=== PATIENT | female | born 1955 | race Caucasian/White ===

== ENCOUNTER 2019-02-25 09:15 | Emergency (ER) | payer MEDICAID ==
[~2019-02-25] VITALS: Ht 160 cm; Wt 79.1 kg
[~2019-02-25 09:15] MED LIST: AMOX-580 PO; PER10325T PO
[2019-02-25 09:49] LABS: BASOPHILS # (AUTO) 0.1 X10'3 (0-0.2); BASOPHILS % (AUTO) 0.6 % (0-1); EOSINOPHILS # (AUTO) 0.4 X10'3 (0-0.9); EOSINOPHILS % (AUTO) 2.9 % (0-6); HEMATOCRIT 46.5 % (35.0-45.0); LYMPHOCYTES # (AUTO) 4.9 X10'3 (1.1-4.8); LYMPHOCYTES % (AUTO) 35.3 % (21-51); MEAN CORPUSCULAR HEMOGLOBIN 31.2 PG (27.0-31.0); MEAN CORPUSCULAR HGB CONC 34.4 g/dL (33.0-36.5); MEAN CORPUSCULAR VOLUME 90.7 FL (78-98); MONOCYTES # (AUTO) 1.1 X10'3 (0-0.9); MONOCYTES % (AUTO) 7.9 % (2-12); NEUTROPHILS # (AUTO) 7.4 X10'3 (1.8-7.7); NEUTROPHILS % (AUTO) 53.3 % (42-75); PLATELET COUNT 318 X10'3 (140-440); RED BLOOD COUNT 5.13 X10'6 (4.20-5.60); RED CELL DISTRIBUTION WIDTH 13.2 % (11.5-14.5)
[2019-02-25 10:04] LABS: PARTIAL THROMBOPLASTIN TIME 27 SECONDS (22-32)
[2019-02-25 10:05] LABS: ALANINE AMINOTRANSFERASE 160 U/L (12-78); ALBUMIN 3.7 G/DL (3.4-5.0); ALBUMIN/GLOBULIN RATIO 0.8 (1.1-1.5); ALKALINE PHOSPHATASE 109 IU/L (46-116); ANION GAP 8 (8-16); ASPARTATE AMINO TRANSFERASE 80 U/L (10-37); BILIRUBIN,TOTAL 0.3 MG/DL (0.1-1.0); BLOOD UREA NITROGEN 21 MG/DL (7-18); CALCIUM 9.4 MG/DL (8.5-10.1); CHLORIDE 105 MMOL/L (99-107); CREATININE 1.05 MG/DL (0.40-0.90); GLUCOSE 100 MG/DL (70-104); POTASSIUM 4.2 MMOL/L (3.5-5.1); SODIUM 141 MMOL/L (135-145); TOTAL CARBON DIOXIDE 28.4 MMOL/L (24-32); TOTAL PROTEIN 8.4 G/DL (6.4-8.2); eGFR 53 ML/MIN
[2019-02-25 10:10] VITALS: BP 159/111
[2019-02-25] MEDS ORDERED: acetaminophen w/codeine (30MG) #3 tablet PO ONE (10:20)
[2019-02-25] MEDS ORDERED: azithromycin 250mg tablet PO ONE (10:20)
[2019-02-25] MEDS ORDERED: AZIT-72 PO (10:25)
== END 2019-02-25 10:45 | disposition home or self-care (01) ==
LOC: ER 09:16
DX: J40 Bronchitis, not specified as acute or chronic (principal); Z90.49 Acquired absence of other specified parts of digestive tract; Z90.710 Acquired absence of both cervix and uterus; Z98.890 Other specified postprocedural states; Z88.8 Allergy status to other drugs, medicaments and biological substances; Z79.899 Other long term (current) drug therapy; Z56.0 Unemployment, unspecified
CPT/HCPCS: 36415; 71046; 80053; 84145; 84484; 85025; 85610; 85730; 93005; 99284

== ENCOUNTER 2022-03-19 10:42 | Emergency (ER) | payer MEDICAID ==
[~2022-03-19] VITALS: Ht 91.4 cm; Wt 75.0 kg
[2022-03-19 11:23] VITALS: BP 160/97
== END 2022-03-19 14:36 | disposition left against medical advice (07) ==
LOC: ER 10:43
DX: S61.412A Laceration without foreign body of left hand, initial encounter (principal); Z53.21 Procedure and treatment not carried out due to patient leaving prior to being seen by health care provider; X58.XXXA Exposure to other specified factors, initial encounter; Y93.89 Activity, other specified; Y92.89 Other specified places as the place of occurrence of the external cause; Y99.8 Other external cause status
CPT/HCPCS: A6446; A6449

== ENCOUNTER 2022-08-01 18:32 | Emergency (ER) | payer MEDICAID ==
[~2022-08-01] VITALS: Ht 160 cm; Wt 72.7 kg
[2022-08-01 20:58] VITALS: BP 144/95
[2022-08-01] MEDS ORDERED: TRAM50TA2 PO (22:55)
[2022-08-01] MEDS ORDERED: traMADol 50MG tablet PO ONE (23:10)
== END 2022-08-01 23:19 | disposition home or self-care (01) ==
LOC: ER 18:33
DX: M71.21 Synovial cyst of popliteal space [Baker], right knee (principal); Z90.49 Acquired absence of other specified parts of digestive tract; Z90.710 Acquired absence of both cervix and uterus; Z98.890 Other specified postprocedural states; Z56.0 Unemployment, unspecified; Z88.8 Allergy status to other drugs, medicaments and biological substances; Z79.899 Other long term (current) drug therapy
CPT/HCPCS: 73564; 93971; 99284

== ENCOUNTER 2022-08-17 00:22 | Emergency (ER) | payer MEDICAID ==
[~2022-08-17] VITALS: Ht 160 cm; Wt 67.2 kg
[2022-08-17 00:25] VITALS: BP 149/101
[2022-08-17] MEDS ORDERED: IBUP-1985 PO (00:39)
[2022-08-17] MEDS ORDERED: TRAM50TA2 PO (00:39)
[2022-08-17] MEDS ORDERED: ACET650T58 PO (00:39)
== END 2022-08-17 00:53 | disposition home or self-care (01) ==
LOC: ER 00:23
DX: M71.21 Synovial cyst of popliteal space [Baker], right knee (principal); Z88.8 Allergy status to other drugs, medicaments and biological substances; Z79.899 Other long term (current) drug therapy; Z79.1 Long term (current) use of non-steroidal anti-inflammatories (NSAID); Z79.2 Long term (current) use of antibiotics
CPT/HCPCS: 99283

== ENCOUNTER 2022-10-12 14:46 | Inpatient (IN) | payer MEDICAID ==
[~2022-10-12] VITALS: Ht 160 cm; Wt 63.6 kg
[~2022-10-12 14:46] MED LIST changes: +IBUP-1985 PO
[2022-10-12] MEDS ORDERED: piperacillin/tazo 3.375gm/50ml 50 ML IV ONE (15:25)
[2022-10-12 16:00] LABS: BASOPHILS % (AUTO) 0.2 % (0-1); EOSINOPHILS # (AUTO) 0.1 X10'3 (0-0.9); EOSINOPHILS % (AUTO) 0.8 % (0-6); HEMATOCRIT 41.7 % (35.0-45.0); HEMOGLOBIN 13.9 g/dl (12.0-16.0); LYMPHOCYTES % (AUTO) 32.1 % (21-51); MEAN CORPUSCULAR HEMOGLOBIN 29.3 PG (27.0-31.0); MEAN CORPUSCULAR HGB CONC 33.3 g/dL (33.0-36.5); MEAN CORPUSCULAR VOLUME 87.9 FL (78-98); MONOCYTES # (AUTO) 1.4 X10'3 (0-0.9); MONOCYTES % (AUTO) 10.7 % (2-12); NEUTROPHILS # (AUTO) 7.1 X10'3 (1.8-7.7); NEUTROPHILS % (AUTO) 56.2 % (42-75); PLATELET COUNT 241 X10'3 (140-440); RED BLOOD COUNT 4.74 X10'6 (4.20-5.60); RED CELL DISTRIBUTION WIDTH 13.5 % (11.5-14.5); WHITE BLOOD COUNT 12.6 X10'3 (4.5-11.0)
[2022-10-12] MEDS ORDERED: morphine 4 MG/ML inj SYRINge IV ONE (16:00)
[2022-10-12] MEDS ORDERED: ondansetron/PF 4mg/2ml inj IV ONE (16:00)
[2022-10-12 16:16] LABS: ALANINE AMINOTRANSFERASE 54 U/L (12-78); ALBUMIN 3.4 G/DL (3.4-5.0); ALBUMIN/GLOBULIN RATIO 0.9 (1.1-1.5); ALKALINE PHOSPHATASE 102 IU/L (46-116); ANION GAP 9 (8-16); ASPARTATE AMINO TRANSFERASE 31 U/L (10-37); BILIRUBIN,TOTAL 0.6 MG/DL (0.1-1.0); BLOOD UREA NITROGEN 11 MG/DL (7-18); BUN/CREATININE RATIO 11.8 (10.0-20.0); CALCIUM 8.9 MG/DL (8.5-10.1); CHLORIDE 105 MMOL/L (99-107); CREATININE 0.93 MG/DL (0.40-0.90); GLUCOSE 96 MG/DL (70-104); POTASSIUM 3.6 MMOL/L (3.5-5.1); SODIUM 140 MMOL/L (135-145); TOTAL CARBON DIOXIDE 26.1 MMOL/L (24-32); eGFR 61 ML/MIN
[2022-10-12] MEDS ORDERED: TETanus/Pertussis (Acell)/Diphther VAC/PF (Tdap-Adult) 0.5ml syringe IMVAC ONE (16:30)
--- NOTE | 2022-10-12 16:35 | NUR ---
Pt moved from ER fast track to ER rm. 7.
[2022-10-12] MEDS ORDERED: NO HOME MEDS (17:35)
--- NOTE | 2022-10-12 18:19 | NUR ---
assumed care from shagufta sampson.
[2022-10-12] MEDS ORDERED: mag hydrox/Alum hydrox/simeth 30ml oral suspension PO PRN (20:35)
[2022-10-12] MEDS ORDERED: ondansetron/PF 4mg/2ml inj IV PRN (20:35)
[2022-10-12] MEDS ORDERED: magnesium 4gm in 100ml NS 100 ML IV PRN (20:35)
[2022-10-12] MEDS ORDERED: HYDROcodone/acetaminophen 5mg/325mg tablet PO PRN (20:35)
[2022-10-12] MEDS ORDERED: acetaminophen 325mg tablet PO PRN (20:35)
[2022-10-12] MEDS ORDERED: magnesium hydroxide 30ml (MOM) UD suspension PO PRN (20:35)
[2022-10-12] MEDS ORDERED: potassium Cl 20 mEq SR tablet PO PRN ×2 (20:35)
[2022-10-12] MEDS ORDERED: magnesium 2GM in 50ml NS 50 ML IV PRN (20:35)
[2022-10-12] MEDS ORDERED: morphine 2 MG/ML inj. syringe IV PRN ×2 (20:35)
[2022-10-12] MEDS ORDERED: potassium Cl 40MEQ/1/2NS 520ml 520 ML IV PRN (20:35)
[2022-10-12] MEDS ORDERED: magnesium Cl slow-release 64mg tablet PO PRN (20:35)
--- NOTE | 2022-10-12 22:10 | NUR ---
Received report from OLLIE Lozano in the ED.
[2022-10-12 22:25] VITALS: BP 152/90
--- NOTE | 2022-10-12 22:25 | NUR ---
Pt came up to the floor.
[2022-10-12] MEDS: HYDROcodone/acetaminophen 10/325mg tab PO PRN (22:54)
[2022-10-13] MEDS: piperacillin/tazo 3.375gm/50ml 50 ML IV SCH ×3 (00:21→16:26)
[2022-10-13 05:00] VITALS: BP 98/71
[2022-10-13 06:19] LABS: BASOPHILS # (AUTO) 0.1 X10'3 (0-0.2); BASOPHILS % (AUTO) 0.9 % (0-1); EOSINOPHILS # (AUTO) 0.2 X10'3 (0-0.9); EOSINOPHILS % (AUTO) 1.6 % (0-6); HEMATOCRIT 39.9 % (35.0-45.0); HEMOGLOBIN 13.4 g/dl (12.0-16.0); LYMPHOCYTES # (AUTO) 3.7 X10'3 (1.1-4.8); LYMPHOCYTES % (AUTO) 37.6 % (21-51); MEAN CORPUSCULAR HEMOGLOBIN 29.7 PG (27.0-31.0); MEAN CORPUSCULAR HGB CONC 33.7 g/dL (33.0-36.5); MEAN CORPUSCULAR VOLUME 88.2 FL (78-98); MEAN PLATELET VOLUME 8.7 FL (7.4-10.4); NEUTROPHILS # (AUTO) 4.8 X10'3 (1.8-7.7); NEUTROPHILS % (AUTO) 49.9 % (42-75); PLATELET COUNT 219 X10'3 (140-440); RED BLOOD COUNT 4.52 X10'6 (4.20-5.60); RED CELL DISTRIBUTION WIDTH 13.8 % (11.5-14.5); WHITE BLOOD COUNT 9.7 X10'3 (4.5-11.0)
[2022-10-13 06:22] LABS: ALANINE AMINOTRANSFERASE 50 U/L (12-78); ALBUMIN 2.9 G/DL (3.4-5.0); ALBUMIN/GLOBULIN RATIO 0.9 (1.1-1.5); ALKALINE PHOSPHATASE 75 IU/L (46-116); ANION GAP 9 (8-16); ASPARTATE AMINO TRANSFERASE 29 U/L (10-37); BILIRUBIN,TOTAL 0.9 MG/DL (0.1-1.0); BLOOD UREA NITROGEN 11 MG/DL (7-18); BUN/CREATININE RATIO 12.8 (10.0-20.0); CALCIUM 8.7 MG/DL (8.5-10.1); CHLORIDE 106 MMOL/L (99-107); CREATININE 0.86 MG/DL (0.40-0.90); GLUCOSE 102 MG/DL (70-104); MAGNESIUM 1.7 MG/DL (1.5-2.4); POTASSIUM 3.7 MMOL/L (3.5-5.1); SODIUM 142 MMOL/L (135-145); TOTAL CARBON DIOXIDE 26.9 MMOL/L (24-32); TOTAL PROTEIN 6.2 G/DL (6.4-8.2); eGFR 66 ML/MIN
--- NOTE | 2022-10-13 06:36 | NUR ---
Problems reprioritized. Patient report given, questions answered & plan of care reviewed with CHANELL Maya.
--- NOTE | 2022-10-13 06:48 | NUR ---
Patient in room ORTHO 4023. I have received report from Dasia and had the opportunity to ask questions and assume patient care.
[2022-10-13] MEDS: K and/or MAG REPLACEMENT MC SCH ×2 (06:56→19:40)
[2022-10-13] MEDS: docusate sod 100mg capsule PO SCH ×2 (08:06→19:34)
[2022-10-13] MEDS: heparin, porcine 5000 units/ml vial SQ SCH ×2 (08:07→19:34)
[2022-10-13] MEDS: HYDROcodone/acetaminophen 10/325mg tab PO PRN ×2 (08:11→19:34)
[2022-10-13 10:00] VITALS: BP 100/66
[2022-10-13 18:00] VITALS: BP 120/63
--- NOTE | 2022-10-13 18:41 | NUR ---
Patient in room ORTHO 4023. I have received report from VIVIENNE LUA and had the opportunity to ask questions and assume patient care.
[2022-10-13 22:00] VITALS: BP 138/69
[2022-10-14] MEDS: piperacillin/tazo 3.375gm/50ml 50 ML IV SCH ×4 (00:18→23:56)
[2022-10-14] MEDS: HYDROcodone/acetaminophen 10/325mg tab PO PRN ×3 (03:11→19:10)
[2022-10-14 04:23] LABS: BASOPHILS % (AUTO) 0.5 % (0-1); EOSINOPHILS # (AUTO) 0.2 X10'3 (0-0.9); EOSINOPHILS % (AUTO) 2.4 % (0-6); HEMATOCRIT 41.1 % (35.0-45.0); HEMOGLOBIN 13.8 g/dl (12.0-16.0); LYMPHOCYTES # (AUTO) 3.5 X10'3 (1.1-4.8); LYMPHOCYTES % (AUTO) 39.4 % (21-51); MEAN CORPUSCULAR HEMOGLOBIN 29.7 PG (27.0-31.0); MEAN CORPUSCULAR HGB CONC 33.6 g/dL (33.0-36.5); MEAN CORPUSCULAR VOLUME 88.5 FL (78-98); MEAN PLATELET VOLUME 8.9 FL (7.4-10.4); MONOCYTES % (AUTO) 11.2 % (2-12); NEUTROPHILS # (AUTO) 4.1 X10'3 (1.8-7.7); NEUTROPHILS % (AUTO) 46.5 % (42-75); PLATELET COUNT 226 X10'3 (140-440); RED BLOOD COUNT 4.64 X10'6 (4.20-5.60); RED CELL DISTRIBUTION WIDTH 13.4 % (11.5-14.5); WHITE BLOOD COUNT 8.8 X10'3 (4.5-11.0)
[2022-10-14 04:50] LABS: ALANINE AMINOTRANSFERASE 50 U/L (12-78); ALBUMIN 2.6 G/DL (3.4-5.0); ALBUMIN/GLOBULIN RATIO 0.7 (1.1-1.5); ALKALINE PHOSPHATASE 84 IU/L (46-116); ANION GAP 11 (8-16); ASPARTATE AMINO TRANSFERASE 28 U/L (10-37); BILIRUBIN,TOTAL 0.4 MG/DL (0.1-1.0); BLOOD UREA NITROGEN 18 MG/DL (7-18); BUN/CREATININE RATIO 19.1 (10.0-20.0); CALCIUM 8.7 MG/DL (8.5-10.1); CHLORIDE 105 MMOL/L (99-107); CREATININE 0.94 MG/DL (0.40-0.90); GLUCOSE 104 MG/DL (70-104); MAGNESIUM 1.6 MG/DL (1.5-2.4); SODIUM 142 MMOL/L (135-145); TOTAL CARBON DIOXIDE 26.5 MMOL/L (24-32); TOTAL PROTEIN 6.1 G/DL (6.4-8.2); eGFR 60 ML/MIN
[2022-10-14 06:00] VITALS: BP 140/62
--- NOTE | 2022-10-14 06:32 | NUR ---
Problems reprioritized. Patient report given, questions answered & plan of care reviewed with ANU LEVIN.
--- NOTE | 2022-10-14 06:36 | NUR ---
Patient in room ORTHO 4023. I have received report from Gabriela LUA and had the opportunity to ask questions and assume patient care.
[2022-10-14] MEDS: K and/or MAG REPLACEMENT MC SCH ×2 (08:00→19:22)
[2022-10-14] MEDS: docusate sod 100mg capsule PO SCH ×2 (08:17→19:10)
[2022-10-14] MEDS: heparin, porcine 5000 units/ml vial SQ SCH ×2 (08:17→19:10)
[2022-10-14 10:00] VITALS: BP 104/73
[2022-10-14 18:00] VITALS: BP 132/78
--- NOTE | 2022-10-14 18:08 | NUR ---
Problems reprioritized. Patient report given, questions answered & plan of care reviewed with Chio LUA.
[2022-10-14 22:00] VITALS: BP 115/76
[2022-10-15] MEDS: HYDROcodone/acetaminophen 10/325mg tab PO PRN ×2 (02:07→07:23)
[2022-10-15 04:31] LABS: BASOPHILS # (AUTO) 0.1 X10'3 (0-0.2); EOSINOPHILS # (AUTO) 0.3 X10'3 (0-0.9); EOSINOPHILS % (AUTO) 3.2 % (0-6); HEMATOCRIT 41.2 % (35.0-45.0); HEMOGLOBIN 14.1 g/dl (12.0-16.0); LYMPHOCYTES # (AUTO) 3.7 X10'3 (1.1-4.8); LYMPHOCYTES % (AUTO) 43.3 % (21-51); MEAN CORPUSCULAR HEMOGLOBIN 29.9 PG (27.0-31.0); MEAN CORPUSCULAR HGB CONC 34.1 g/dL (33.0-36.5); MEAN CORPUSCULAR VOLUME 87.8 FL (78-98); MEAN PLATELET VOLUME 8.5 FL (7.4-10.4); MONOCYTES # (AUTO) 0.8 X10'3 (0-0.9); MONOCYTES % (AUTO) 9.3 % (2-12); NEUTROPHILS # (AUTO) 3.7 X10'3 (1.8-7.7); NEUTROPHILS % (AUTO) 43.2 % (42-75); PLATELET COUNT 240 X10'3 (140-440); RED CELL DISTRIBUTION WIDTH 13.4 % (11.5-14.5); WHITE BLOOD COUNT 8.6 X10'3 (4.5-11.0)
[2022-10-15 04:48] LABS: ALANINE AMINOTRANSFERASE 58 U/L (12-78); ALBUMIN 2.8 G/DL (3.4-5.0); ALBUMIN/GLOBULIN RATIO 0.8 (1.1-1.5); ALKALINE PHOSPHATASE 94 IU/L (46-116); ANION GAP 9 (8-16); ASPARTATE AMINO TRANSFERASE 37 U/L (10-37); BILIRUBIN,TOTAL 0.3 MG/DL (0.1-1.0); BLOOD UREA NITROGEN 14 MG/DL (7-18); BUN/CREATININE RATIO 15.6 (10.0-20.0); CALCIUM 8.9 MG/DL (8.5-10.1); CHLORIDE 104 MMOL/L (99-107); GLUCOSE 107 MG/DL (70-104); MAGNESIUM 1.7 MG/DL (1.5-2.4); POTASSIUM 4.1 MMOL/L (3.5-5.1); SODIUM 140 MMOL/L (135-145); TOTAL CARBON DIOXIDE 27.4 MMOL/L (24-32); TOTAL PROTEIN 6.4 G/DL (6.4-8.2); eGFR 63 ML/MIN
[2022-10-15 06:00] VITALS: BP 133/84
[2022-10-15] MEDS: piperacillin/tazo 3.375gm/50ml 50 ML IV SCH (07:24)
[2022-10-15] MEDS: K and/or MAG REPLACEMENT MC SCH (08:00)
[2022-10-15] MEDS: heparin, porcine 5000 units/ml vial SQ SCH (08:09)
[2022-10-15] MEDS: docusate sod 100mg capsule PO SCH (08:09)
[2022-10-15 10:00] VITALS: BP 125/81
[2022-10-15] MEDS ORDERED: AMOX-117 PO (13:31)
== END 2022-10-15 15:25 | disposition home or self-care (01) | DRG 383 ==
LOC: ER 14:47 → ED HOLD 20:35 → ORTHO 4S 22:25
PROVIDERS: ADMIT Internal Medicine; ATTEND Internal Medicine
DX: L03.113 Cellulitis of right upper limb (principal); S51.851A Open bite of right forearm, initial encounter; Z79.4 Long term (current) use of insulin; Z90.710 Acquired absence of both cervix and uterus; Z95.1 Presence of aortocoronary bypass graft; W54.0XXA Bitten by dog, initial encounter; Y93.89 Activity, other specified; Y92.89 Other specified places as the place of occurrence of the external cause; Y99.8 Other external cause status; Z56.0 Unemployment, unspecified; Z88.8 Allergy status to other drugs, medicaments and biological substances; Z79.899 Other long term (current) drug therapy
CPT/HCPCS: 36415; 73090; 80053; 83605; 83735; 84145; 85025; 87040; 87081; 90715; 99285; A6258; G0378; J1644; J2270; J2405; J2543; J7030

== ENCOUNTER 2023-08-14 12:49 | Inpatient (IN) | payer MEDICAID ==
[~2023-08-14] VITALS: Ht 160 cm; Wt 65.0 kg
[2023-08-14] MEDS: normal saline 1000ml 1,000 ML IV ONE ×2 (13:19→14:55)
[2023-08-14 13:26] LABS: BASOPHILS # (AUTO) 0.1 X10'3 (0-0.2); BASOPHILS % (AUTO) 1.3 % (0-1); EOSINOPHILS # (AUTO) 0.3 X10'3 (0-0.9); EOSINOPHILS % (AUTO) 2.7 % (0-6); HEMATOCRIT 43.8 % (35.0-45.0); HEMOGLOBIN 14.9 g/dl (12.0-16.0); LYMPHOCYTES # (AUTO) 4.9 X10'3 (1.1-4.8); LYMPHOCYTES % (AUTO) 51.4 % (21-51); MEAN CORPUSCULAR HGB CONC 33.9 g/dL (33.0-36.5); MEAN CORPUSCULAR VOLUME 91.4 FL (78-98); MEAN PLATELET VOLUME 8.6 FL (7.4-10.4); MONOCYTES # (AUTO) 0.9 X10'3 (0-0.9); MONOCYTES % (AUTO) 9.8 % (2-12); NEUTROPHILS # (AUTO) 3.3 X10'3 (1.8-7.7); NEUTROPHILS % (AUTO) 34.8 % (42-75); PLATELET COUNT 235 X10'3 (140-440); RED CELL DISTRIBUTION WIDTH 13.5 % (11.5-14.5); WHITE BLOOD COUNT 9.5 X10'3 (4.5-11.0)
[2023-08-14] MEDS: ondansetron/PF 4mg/2ml inj IV ONE (13:40)
[2023-08-14 13:42] LABS: ALBUMIN 3.4 G/DL (3.4-5.0); ANION GAP 9 (8-16); BLOOD UREA NITROGEN 13 MG/DL (7-18); BUN/CREATININE RATIO 11.9 (10.0-20.0); CALCIUM 9.3 MG/DL (8.5-10.1); CHLORIDE 107 MMOL/L (99-107); CREATININE 1.09 MG/DL (0.40-0.90); ETHANOL < 10 MG/DL (<10); GLUCOSE 135 MG/DL (70-104); MAGNESIUM 1.7 MG/DL (1.5-2.4); POTASSIUM 3.6 MMOL/L (3.5-5.1); SODIUM 142 MMOL/L (135-145); TOTAL CARBON DIOXIDE 25.7 MMOL/L (24-32); eCRCL 43 ML/MIN; eGFR 50 ML/MIN
[2023-08-14] MEDS: dicyclomine 10 MG capsule PO ONE (14:05)
[2023-08-14] MEDS: normal saline 1000ML IV soln IVB ONE (14:05)
[2023-08-14 14:10] LABS: TOTAL CELLS COUNTED 100
[2023-08-14 14:11] LABS: PLATELET ESTIMATE NORMAL
[2023-08-14 14:25] LABS: ALANINE AMINOTRANSFERASE 156 U/L (12-78); ALBUMIN/GLOBULIN RATIO 0.9 (1.1-1.5); ALKALINE PHOSPHATASE 135 IU/L (46-116); ASPARTATE AMINO TRANSFERASE 81 U/L (10-37); BILIRUBIN,DIRECT 0.1 MG/DL (0-0.3); BILIRUBIN,TOTAL 0.4 MG/DL (0.1-1.0); LIPASE 21 U/L (16-77); TOTAL PROTEIN 7.4 G/DL (6.4-8.2)
[2023-08-14] MEDS ORDERED: pantoprazole 40mg IV 80 MG in normal saline 100ml IV soln 100 ML IV ONE (14:55)
[2023-08-14] MEDS: pantoprazole 40 MG vial IV ONE (15:00)
[2023-08-14 15:24] LABS: BILIRUBIN,URINE NEGATIVE (Neg); CLARITY,URINE CLEAR (Clear); COLOR,URINE YELLOW (Yellow); GLUCOSE, URINE NEGATIVE (Neg); KETONES,URINE NEGATIVE (Neg); LEUKOCYTE ESTERASE ,URINE NEGATIVE (Neg); NITRITES, URINE NEGATIVE (Neg); OCCULT BLOOD,URINE NEGATIVE (Neg); PROTEIN,URINE NEGATIVE (Neg); UROBILINOGEN,URINE 0.2 E.U/dL (0.2-1.0)
[2023-08-14 15:30] LABS: URINE AMPHETAMINE SCREEN POSITIVE (Neg); URINE BARBITUATE SCREEN NEGATIVE (Neg); URINE BENZODIAZEPINES SCREEN NEGATIVE (Neg); URINE CANNABINOID SCREEN NEGATIVE (Neg); URINE COCAINE SCREEN NEGATIVE (Neg); URINE METHADONE SCREEN NEGATIVE (Neg); URINE OPIATE SCREEN NEGATIVE (Neg); URINE PHENCYCLIDINE SCREEN NEGATIVE (Neg)
[2023-08-14 15:32] LABS: RED BLOOD COUNT 4.86 X10'6 (4.20-5.60); RETICULOCYTE % (AUTO) 0.8 % (0.5-1.5)
[2023-08-14] MEDS ORDERED: iohexol 300mg/ml 100ml inj. ONE (15:33)
[2023-08-14 15:39] LABS: UA COLLECTION TYPE NON-SPECIFIED
[2023-08-14] MEDS ORDERED: mag hydrox/Alum hydrox/simeth 30ml oral suspension PO PRN (16:20)
[2023-08-14] MEDS ORDERED: magnesium 4gm in 100ml NS 100 ML IV PRN (16:20)
[2023-08-14] MEDS ORDERED: HYDROcodone/acetaminophen 5mg/325mg tablet PO PRN (16:20)
[2023-08-14] MEDS ORDERED: magnesium 2GM in 50ml NS 50 ML IV PRN (16:20)
[2023-08-14] MEDS ORDERED: haloperidol lactate 5mg/ml inj IM PRN (16:20)
[2023-08-14] MEDS ORDERED: potassium Cl 20 mEq SR tablet PO PRN ×2 (16:20)
[2023-08-14] MEDS ORDERED: potassium Cl 40MEQ/1/2NS 520ml 520 ML IV PRN (16:20)
[2023-08-14] MEDS ORDERED: dextrose 50%-water 50ml dispensing syringe IV PRN (16:20)
[2023-08-14] MEDS ORDERED: LORazepam 2 mg/ml vial IV PRN ×2 (16:20)
[2023-08-14] MEDS ORDERED: magnesium hydroxide 30ml (MOM) UD suspension PO PRN (16:20)
[2023-08-14] MEDS ORDERED: magnesium Cl slow-release 64mg tablet PO PRN (16:20)
[2023-08-14] MEDS ORDERED: ACET-2 PO (16:48)
[2023-08-14] MEDS ORDERED: NO HOME MEDS (16:54)
[2023-08-14] MEDS: dextrose 5%-1/2 normal saline 1,000 ML IV SCH (17:39)
[2023-08-14] MEDS: K and/or MAG REPLACEMENT MC SCH (20:00)
[2023-08-14] MEDS: pantoprazole 40 MG vial IV SCH (20:00)
[2023-08-14] MEDS: docusate sod 100mg capsule PO SCH (20:00)
[2023-08-14] MEDS: thiamine 100mg/ml 2ml inj. IV SCH (21:00)
[2023-08-14 22:45] VITALS: BP 135/80; PULSE 79; RESP 18; TEMP 97.4; O2SAT 97
[2023-08-15] VITALS (7 sets, daily range): BP systolic 94–138; BP diastolic 64–86; PULSE 61–78; RESP 12–18; TEMP 97.1–98.2; O2SAT 91–98
[2023-08-15 09:12] LABS: BASOPHILS # (AUTO) 0.1 X10'3 (0-0.2); BASOPHILS % (AUTO) 0.7 % (0-1); EOSINOPHILS # (AUTO) 0.1 X10'3 (0-0.9); EOSINOPHILS % (AUTO) 1.7 % (0-6); HEMATOCRIT 39.3 % (35.0-45.0); HEMOGLOBIN 13.3 g/dl (12.0-16.0); LYMPHOCYTES # (AUTO) 2.8 X10'3 (1.1-4.8); LYMPHOCYTES % (AUTO) 35.5 % (21-51); MEAN CORPUSCULAR HEMOGLOBIN 31.2 PG (27.0-31.0); MEAN CORPUSCULAR HGB CONC 33.8 g/dL (33.0-36.5); MEAN CORPUSCULAR VOLUME 92.4 FL (78-98); MEAN PLATELET VOLUME 9.2 FL (7.4-10.4); MONOCYTES # (AUTO) 0.8 X10'3 (0-0.9); MONOCYTES % (AUTO) 9.5 % (2-12); NEUTROPHILS # (AUTO) 4.2 X10'3 (1.8-7.7); NEUTROPHILS % (AUTO) 52.6 % (42-75); PLATELET COUNT 168 X10'3 (140-440); RED BLOOD COUNT 4.26 X10'6 (4.20-5.60); RED CELL DISTRIBUTION WIDTH 13.5 % (11.5-14.5); WHITE BLOOD COUNT 7.9 X10'3 (4.5-11.0)
[2023-08-15] MEDS: folic acid 1mg/0.2ml inj IV SCH (09:40)
[2023-08-15 09:46] LABS: ALANINE AMINOTRANSFERASE 118 U/L (12-78); ALBUMIN 2.6 G/DL (3.4-5.0); ALBUMIN/GLOBULIN RATIO 0.7 (1.1-1.5); ALKALINE PHOSPHATASE 76 IU/L (46-116); AMYLASE 71 U/L (25-115); ANION GAP 7 (8-16); ASPARTATE AMINO TRANSFERASE 55 U/L (10-37); BILIRUBIN,TOTAL 0.6 MG/DL (0.1-1.0); BLOOD UREA NITROGEN 8 MG/DL (7-18); BUN/CREATININE RATIO 10.3 (10.0-20.0); CALCIUM 7.9 MG/DL (8.5-10.1); CHLORIDE 107 MMOL/L (99-107); CHOL/HDL RATIO 2.2 (0.00-4.99); CHOLESTEROL 128 MG/DL (0-200); CREATININE 0.78 MG/DL (0.40-0.90); HDL CHOLESTEROL 59 MG/DL (35-60); LDL CHOLESTEROL 58 MG/DL (50-100); MAGNESIUM 1.7 MG/DL (1.5-2.4); POTASSIUM 3.5 MMOL/L (3.5-5.1); SODIUM 140 MMOL/L (135-145); TOTAL PROTEIN 6.2 G/DL (6.4-8.2); TRIGLYCERIDES 75 MG/DL (20-135); eCRCL 59 ML/MIN; eGFR 74 ML/MIN
[2023-08-15 09:55] LABS: GLUCOSE 107 MG/DL (70-104)
[2023-08-15] MEDS: ondansetron/PF 4mg/2ml inj IV PRN (10:05)
[2023-08-15] MEDS: acetaminophen 325mg tablet PO PRN (12:52)
[2023-08-16 03:00] VITALS: BP 118/67; PULSE 62; RESP 18; TEMP 97; O2SAT 93
[2023-08-16 06:00] VITALS: BP 153/96; PULSE 73; RESP 14; TEMP 98; O2SAT 95
[2023-08-16 07:42] LABS: BASOPHILS # (AUTO) 0.1 X10'3 (0-0.2); BASOPHILS % (AUTO) 0.8 % (0-1); EOSINOPHILS # (AUTO) 0.2 X10'3 (0-0.9); EOSINOPHILS % (AUTO) 2.3 % (0-6); HEMATOCRIT 38.9 % (35.0-45.0); HEMOGLOBIN 13.1 g/dl (12.0-16.0); LYMPHOCYTES # (AUTO) 2.7 X10'3 (1.1-4.8); LYMPHOCYTES % (AUTO) 40.3 % (21-51); MEAN CORPUSCULAR HEMOGLOBIN 30.6 PG (27.0-31.0); MEAN CORPUSCULAR HGB CONC 33.6 g/dL (33.0-36.5); MEAN CORPUSCULAR VOLUME 91.2 FL (78-98); MEAN PLATELET VOLUME 9.2 FL (7.4-10.4); MONOCYTES # (AUTO) 0.7 X10'3 (0-0.9); MONOCYTES % (AUTO) 9.8 % (2-12); NEUTROPHILS # (AUTO) 3.2 X10'3 (1.8-7.7); NEUTROPHILS % (AUTO) 46.8 % (42-75); PLATELET COUNT 162 X10'3 (140-440); RED BLOOD COUNT 4.26 X10'6 (4.20-5.60); RED CELL DISTRIBUTION WIDTH 12.9 % (11.5-14.5); WHITE BLOOD COUNT 6.8 X10'3 (4.5-11.0)
[2023-08-16 08:00] VITALS: RESP 14; O2SAT 95
[2023-08-16 08:00] LABS: ALANINE AMINOTRANSFERASE 107 U/L (12-78); ALBUMIN 2.4 G/DL (3.4-5.0); ALBUMIN/GLOBULIN RATIO 0.8 (1.1-1.5); ALKALINE PHOSPHATASE 72 IU/L (46-116); AMYLASE 57 U/L (25-115); ANION GAP 6 (8-16); ASPARTATE AMINO TRANSFERASE 50 U/L (10-37); BILIRUBIN,TOTAL 0.4 MG/DL (0.1-1.0); BLOOD UREA NITROGEN 10 MG/DL (7-18); BUN/CREATININE RATIO 12.3 (10.0-20.0); CALCIUM 7.8 MG/DL (8.5-10.1); CHLORIDE 108 MMOL/L (99-107); CREATININE 0.81 MG/DL (0.40-0.90); GLUCOSE 100 MG/DL (70-104); MAGNESIUM 1.6 MG/DL (1.5-2.4); POTASSIUM 3.8 MMOL/L (3.5-5.1); SODIUM 141 MMOL/L (135-145); TOTAL PROTEIN 5.6 G/DL (6.4-8.2); eCRCL 57 ML/MIN; eGFR 71 ML/MIN
[2023-08-16 11:00] VITALS: BP 134/77; PULSE 78; RESP 16; TEMP 97; O2SAT 96
[2023-08-16] MEDS ORDERED: pantoprazole 40mg Tablet.DR PO SCH (13:54)
[2023-08-16 15:00] VITALS: BP 135/85; PULSE 70; RESP 15; TEMP 98.4; O2SAT 98
[2023-08-18] MEDS ORDERED: thiamine 100mg tablet PO SCH (08:00)
[2023-08-19] MEDS ORDERED: folic acid 1mg tablet PO SCH (08:00)
== END 2023-08-16 16:05 | disposition home or self-care (01) | DRG 812 ==
LOC: ER 12:49 → ED HOLD 16:27 → PCU 3S 22:40
PROVIDERS: ADMIT Internal Medicine; ATTEND Internal Medicine
DX: T40.411A Poisoning by fentanyl or fentanyl analogs, accidental (unintentional), initial encounter (principal); R09.2 Respiratory arrest; K92.0 Hematemesis; K80.20 Calculus of gallbladder without cholecystitis without obstruction; R74.01 Elevation of levels of liver transaminase levels; F19.10 Other psychoactive substance abuse, uncomplicated; E78.00 Pure hypercholesterolemia, unspecified; T43.651A Poisoning by methamphetamines accidental (unintentional), initial encounter; Y92.89 Other specified places as the place of occurrence of the external cause; Z88.8 Allergy status to other drugs, medicaments and biological substances; Z90.710 Acquired absence of both cervix and uterus; Z90.49 Acquired absence of other specified parts of digestive tract
CPT/HCPCS: 36415; 74177; 76700; 80048; 80053; 80061; 80076; 80305; 80320; 81003; 82150; 82948; 83036; 83690; 83735; 84484; 85007; 85025; 85045; 87081; 93005; 96374; 96375; 99291; C1758; C9113; G0378; J2405; J3411; J3490; J7030; Q9967

== ENCOUNTER 2025-03-15 08:09 | Emergency (ER) | payer MEDICAID ==
[~2025-03-15] VITALS: Ht 160 cm; Wt 72.3 kg
[~2025-03-15 08:09] MED LIST changes: -AMOX-580 PO; -IBUP-1985 PO; +NO HOME MEDS; -PER10325T PO
--- NOTE | 2025-03-15 09:35 | Physician Documentation ---
History of Present Illness ~ Chief Complaint: Hypertension Stated Complaint: HIGH BLOOD PRESSURE Time Seen by MD: 09:34 Primary Medical Doctor: FLORES VAUGHN Mode of Arrival: Ambulatory HPI 69-year-old female who presents to the emergency department reports some headache and high blood pressure. 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 Denies chest pain and/or shortness of breath. She is scheduled for primary care follow up tomorrow morning and [facility]. No associated dizziness, blurry vision or chest pain. Medication Reconciliation Allergies: Coded Allergies: Chlorpheniramine Polistirex (Verified Allergy, Severe, left arm numbness, 03/15/25) Miscellaneous Medications Home Med List (No Home Medications), (Reported) Past Medical History Past Medical History: *GI/HEPATOBILIARY*, Bowel Obstruction Past Surgical History: abdominal surgery, appendectomy, hysterectomy, orthopedic surgeries Patient History: FH: breast cancer GRANDFATHER OR GRANDMOTHER FHx: multiple sclerosis MOTHER No Family History of: (CABG) Coronary artery bypass grafting (CAD) Coronary arteriosclerosis (CHF) Congestive heart failure (COPD) Chronic obstructive lung disease (CVA) Cerebrovascular accident (Cancer) Malignant carcinoid tumor (DM Type 2) Diabetes mellitus type 2 (DM Type1) Diabetes mellitus type 1 ([place]) Myocardial infarction (PVD) Peripheral vascular disease (TIA) Transient ischemic attack Alzheimer's disease Aortic aneurysm Asthma Cardiac arrest Hypercholesterolemia Alcohol Use: None Drug Use: none Lives with: Family Lives In: Home Occupation: unemployed Review of Systems All Other Systems at this time: Reviewed and Negative Neurological: Reports: headache Physical Exam Vital Signs: RN Vital Signs have been reviewed: Yes, Temperature: 98.2, Source: Oral, Heart Rate: 88, Respiratory Rate: 16, BP: 162/109, Pulse Oximetry: 96, Weight: 72.300 Oxygen Flow Rate: 0 General Appearance: alert, WD/WN, mild distress Neck: normal inspection Pupils/EOM/Fundus: PERRLA ENT: normal ENT inspection, PERRL/EOMI Respiratory: no respiratory distress Chest: no accessory muscle use Cardiovascular: normal peripheral pulses Gastrointestinal: non-tender Skin: normal color Orientation / Memory / CN Exam: oriented x3 Motor / Sensory: no motor deficit, no sensory deficit Cerebellar Function Exam: normal Psychiatric: normal mood/affect Progress Results/Orders Results/Orders Completed Orders - ALEX TAVAREZ PAC Normal Saline 1000ml (0.9% Sodium Chlori (03/15/25 09:40) Cbc/Diff (03/15/25 09:37) CMP (03/15/25 09:37) Ketorolac Trometh 30mg/Ml Vial (Toradol (03/15/25 09:40) Lisinopril Tablet (Zestril Tablet) (03/15/25 10:35) Medications Received in ER Medications (Trade) Dose Ordered Sig/Lacy Route PRN Reason Start Time Stop Time Status Last Admin Dose Admin (Toradol inj. 30mg/ml) 30 mg ONCE ONCE IV 03/15/25 09:40 03/15/25 09:42 DC 03/15/25 10:24 30 MG Sodium Chloride 1,000 ml @ 1,000 mls/hr ONCE ONCE IV 03/15/25 09:40 03/15/25 10:39 DC 03/15/25 10:40 1,000 MLS/HR (Zestril tablet) 20 mg ONCE ONCE PO 03/15/25 10:35 03/15/25 10:38 DC 03/15/25 10:46 20 MG Vital Signs 03/15/25 03/15/25 03/15/25 03/15/25 08:16 08:33 08:48 10:14 Temp 96.8 98.2 98.2 Pulse 90 88 70 Resp 22 16 17 B/P (MAP) 176/113 162/109 (126) 162/99 (120) Pulse Ox 97 96 98 O2 Flow Rate 0 0 0 03/15/25 03/15/25 10:24 10:46 Pulse 69 Resp 14 Laboratory Tests Test 03/15/25 10:08 White Blood Count 8.8 Red Blood Count 5.01 Hemoglobin 15.5 Hematocrit 44.9 Mean Corpuscular Volume 89.7 Mean Corpuscular Hemoglobin 31.0 Mean Corpuscular Hemoglobin Concent 34.6 Red Cell Distribution Width 13.9 Platelet Count 202 Mean Platelet Volume 8.5 Neutrophils (%) (Auto) 50.2 Lymphocytes (%) (Auto) 34.6 Monocytes (%) (Auto) 10.4 Eosinophils (%) (Auto) 4.4 Basophils (%) (Auto) 0.4 Neutrophils # (Auto) 4.4 Lymphocytes # (Auto) 3.0 Monocytes # (Auto) 0.9 Eosinophils # (Auto) 0.4 Basophils # (Auto) 0.0 CBC Comment Sodium Level 141 Potassium Level 4.0 Chloride Level 107 Carbon Dioxide Level 26.9 Anion Gap 7 L Blood Urea Nitrogen 10 Creatinine 0.75 Estimated GFR/1.73 m2 77 BUN/Creatinine Ratio 13.3 Glucose Level 97 Calcium Level 8.8 Total Bilirubin 0.7 Aspartate Amino Transf (AST/SGOT) 80 H Alanine Aminotransferase (ALT/SGPT) 152 H Alkaline Phosphatase 120 H Total Protein 7.4 Albumin 3.4 Globulin 4.0 Albumin/Globulin Ratio 0.9 L Chemistry Comments Medical Decision Making Additional information obtaine: N/A Findings Examination history warrants screening labs prior to antihypertensives. We will provide patient with a IV normal saline bolus and Toradol for headache mitig ation. She is resting comfortably awaiting reassessment. Labs reviewed and reassuring for no JULIO yet mild elevation of LFTs likely consistent with past social history. We will go ahead and provide lisinopril 20 mg orally. Outpatient prescription provided for patient. She will follow up with [facility] as scheduled in the morning. Safe for discharge without clinic al suspicion of hypertensive urgency or hypertensive emergency. Differential Dx:Considerations: Include CHF, Include HTN, essential, Include HTN, accelerated, Include HTN, malignant, Include HTN, encephalopathy, Include medical noncompliance, Include medication withdrawal, Include pulmonary edema, Include renal failure, Include -induced, Include other Departure Disposition: HOME / SELF CARE / HOMELESS Impression: Primary Impression: Benign hypertension Additional Impressions: Headache Qualified Codes: R51.9 - Headache, unspecified Transaminitis Condition: Improved Discharge Instructions: Hypertension, Adult, [id number] Additional Instructions: Please begin medications as directed and keep your scheduled follow up appointment with [facility] tomorrow for additional management and it is screening of high blood pressure. Thank you for visiting emergency department [facility]. Referrals: NO PRIMARY CARE PROVIDER (PCP) Education Educated: Patient Educated regarding: diagnosis, treatment, prognosis, need for follow up Signature Scribe Signature: . Attestation: . ALEX TAVAREZ PAC Mar 15, 2025 09:35
[2025-03-15 10:15] LABS: MEAN PLATELET VOLUME 8.5 FL (7.4-10.4); RED CELL DISTRIBUTION WIDTH 13.9 % (11.5-14.5)
[2025-03-15] MEDS: ketorolac trometh 30MG/ML vial 30 MG/ML VIAL IV ONE (10:24)
[2025-03-15 10:30] LABS: CREATININE 0.75 MG/DL (0.40-0.90); TOTAL CARBON DIOXIDE 26.9 MMOL/L (24-32); eCRCL 60 ML/MIN; eGFR 77 ML/MIN
[2025-03-15] MEDS: normal saline 1000ml 1,000 ML IV ONE (10:40)
[2025-03-15 11:01] VITALS: BP 165/100; PULSE 68; TEMP 98.1; O2SAT 99
[2025-03-15 11:33] VITALS: RESP 20
== END 2025-03-15 11:43 | disposition home or self-care (01) ==
LOC: ER 08:10
DX: I10 Essential (primary) hypertension (principal); R51.9 Headache, unspecified; R74.01 Elevation of levels of liver transaminase levels; Z90.49 Acquired absence of other specified parts of digestive tract; Z90.710 Acquired absence of both cervix and uterus; Z88.8 Allergy status to other drugs, medicaments and biological substances; Z98.890 Other specified postprocedural states; Z56.0 Unemployment, unspecified
CPT/HCPCS: 36415; 80053; 85025; 96374; 99283; J1885; J7030

== ENCOUNTER 2025-03-20 10:17 | Emergency (ER) | payer MEDICAID ==
[~2025-03-20] VITALS: Ht 160 cm; Wt 72.7 kg
[2025-03-20 10:25] VITALS: TEMP 98
--- NOTE | 2025-03-20 11:51 | RADIOLOGY REPORT ---
EXAM: CT CT HEAD INDICATION: 3 week migraine, labile blood pressures COMPARISON: None TECHNIQUE: CT of the head without intravenous contrast. Radiation Dose Information: CT Dose: CTDI volume is 49 mGy. Dose-length product is 898 mGy*cm The dose indicators for CT are the volume Computed Tomography (CT) Dose Index (CTDIvol) and the Dose Length Product (DLP), and are measured in units of mGy and mGy-cm, respectively. These indicators are not patient dose, but values generated from the CT scanner acquisition factors. The report includes radiation exposure data for exposures received during this examination. Findings: Scattered hypoattenuation in the periventricular and subcortical white matter, suggestive of chronic microvascular disease. The ventricles and sulci are normal in size and configuration for the patient's age. There is no mass-effect, hemorrhage, midline shift, or abnormal extra-axial fluid collection visible. No calvarial fracture. Essentially clear visualized paranasal sinuses. Mastoid air cells are clear. IMPRESSION: No acute intracranial hemorrhage or mass effect.
--- NOTE | 2025-03-20 12:08 | Physician Documentation ---
History of Present Illness ~ Chief Complaint: Hypertension Stated Complaint: MED CLEARANCE HIGH BP Time Seen by MD: 11:01 OK to notify your PCP?: Yes Primary Medical Doctor: FLORES CRUZ [facility] Source: patient Mode of Arrival: POV, Ambulatory Exam Limitations: no limitations HPI Returns for hypertension. She is in the [facility] which they take her blood pressure every morning. She was started on lisinopril last week after she was seen here for severe migraine accompanied with hypertension with blood pressure in the 200s. She was given migraine cocktail in primary care office in the morning which she experiencing some relief. She does have muscle tightness as well to the trapezius muscle. She reports that these migraines have been going on for the past 3 weeks. Denies any vision change, temporal pain or sensitivity to light with her headache. She denies that this is the worst headache of her life. She reports that the pain feels like a tightness behind her eyes. Medication Reconciliation Allergies: Coded Allergies: Chlorpheniramine Polistirex (Verified Allergy, Severe, left arm numbness, 03/20/25) Miscellaneous Medications Home Med List (No Home Medications), (Reported) Past Medical History Past Medical History: *GI/HEPATOBILIARY*, Bowel Obstruction Past Surgical History: abdominal surgery, appendectomy, hysterectomy, orthopedic surgeries Patient History: FH: breast cancer GRANDFATHER OR GRANDMOTHER FHx: multiple sclerosis MOTHER No Family History of: (CABG) Coronary artery bypass grafting (CAD) Coronary arteriosclerosis (CHF) Congestive heart failure (COPD) Chronic obstructive lung disease (CVA) Cerebrovascular accident (Cancer) Malignant carcinoid tumor (DM Type 2) Diabetes mellitus type 2 (DM Type1) Diabetes mellitus type 1 ([place]) Myocardial infarction (PVD) Peripheral vascular disease (TIA) Transient ischemic attack Alzheimer's disease Aortic aneurysm Asthma Cardiac arrest Hypercholesterolemia Alcohol Use: None Drug Use: none Lives with: Family Lives In: Home Occupation: unemployed Review of Systems All Other Systems at this time: Reviewed and Negative Physical Exam Vital Signs: RN Vital Signs have been reviewed: Yes, Temperature: 98.0, Heart Rate: 78, Respiratory Rate: 15, BP: 153/81, Pulse Oximetry: 97, Weight: 72.700 Pulse Oximetry Reflects: adequate oxygenation Physical Exam General: Alert, no apparent distress. HEENT: PERRL, EOMI, no injection, moist mucous membranes. Neck: Full range of motion. Trapezius muscle when it very tight on exam. Respiratory: Lungs clear, no respiratory distress. Chest: No accessory muscle use. Cardiovascular: Regular rate and rhythm, no murmurs. Gastrointestinal: Soft, nontender, nondistended. Bowels sounds present. Extremities: Normal range of motion, no deformity. Neurologic: Oriented x4. Psychiatric: Normal mood and affect. Skin: Normal color, warm and dry. No edema, no ecchymosis. Progress Results/Orders Reviewed/noted all lab results: Yes Results/Orders Orders - LILI SUNSHINE Ct Head (03/20/25 11:09) Completed Orders - LILI SUNSHINE Cyclobenzaprine Tablet (Flexeril Tablet) (03/20/25 11:10) Ct Head (03/20/25 11:09) Medications Received in ER Medications (Trade) Dose Ordered Sig/Lacy Route PRN Reason Start Time Stop Time Status Last Admin Dose Admin (Flexeril tablet) 10 mg ONCE ONCE PO 03/20/25 11:10 03/20/25 11:12 DC 03/20/25 11:35 10 MG Vital Signs 03/20/25 03/20/25 03/20/25 10:25 10:47 10:48 Temp 98.0 Pulse 91 78 Resp 16 15 15 B/P (MAP) 199/119 153/81 (105) Pulse Ox 96 97 O2 Flow Rate 0 EKG/XRAY/CT/US/VASC/MRI CT : Impression Head CT as interpreted by me: No obvious masses, hemorrhage or herniation. Medical Decision Making Additional information obtaine: old records Findings Since she has had migraine for the past 3 weeks that is briefly reduced when her blood pressure goes down but she remains to have the severe headache, I have given her a Flexeril to help with the neck spasm of the trapezius muscle discovered on exam. Also did a head CT to rule out any mass that could be causing her headaches. He was advised to continue taking the lisinopril 10 mg that I prescribed in clinic last week. She continues having high blood pressure I can see her in clinic since I am her primary care provider. Her headache is completely gone after the Flexeril and she reports that her neck is no longer hurting. When she use in this program, I put parameters on discharge instructions so they do not have to send her in every single day if she is asymp tomatic but hypertensive. Differential Dx:Considerations: Include CHF, Include HTN, essential, Include HTN, accelerated, Include HTN, malignant, Include HTN, encephalopathy, Include medical noncompliance Departure Disposition: 01 HOME / SELF CARE / HOMELESS Impression: Primary Impression: HTN (hypertension) Additional Impressions: Headache Trapezius muscle spasm Condition: Stable Discharge Instructions: Hypertension, Adult, [id number] Additional Instructions: Please follow up in clinic next week so we can recheck her blood pressure. I may need to make a dose change or add a medication. If she does not have a headache and is asymptomatic, blood pressure parameter of systolic under 200 is allowed and no further emergent care as needed. Please seek care if systolic over 200. Your head CT was negative for any mass or bleed. The trapezius muscle was very tight and we gave you a muscle relaxer and this seemed to take care of your blood pressure and your headache. You have been prescribed Flexeril which you can take up to 3 times a day as needed for muscle spasm. If this makes you drowsy, please take at nighttime only. Return back here for any new or worsening symptoms. Referrals: NO PRIMARY CARE PROVIDER (PCP) Education Educated: Patient Educated regarding: diagnosis, treatment, prognosis, need for follow up Additional Comment Medical Screen Exam This patient recieved a medical screening examination. After reviewing the individual's medical complaints with presenting symptoms and performing an appropriate physical examination, it was determined that no immediate life-threatening emergency medical condition is present. This individual is also not a women having contractions. Signature Scribe Signature: . Attestation: Scribed for Lili Sunshine by Lili Encinas NP . 03/20/25 12:06 Parts of this note were created using [employer] voice recognition software program. While efforts were made to correct any mistakes made by this voice recognition software program, nonsensical phrases may remain in this note. In addition, there may be errors and syntax, grammar, content and spelling. LILI SUNSHINE Mar 20, 2025 12:08
[2025-03-20 12:55] VITALS: BP 165/113; PULSE 78; RESP 15; O2SAT 98
== END 2025-03-20 12:58 | disposition home or self-care (01) ==
LOC: ER 10:18
DX: I10 Essential (primary) hypertension (principal); G43.909 Migraine, unspecified, not intractable, without status migrainosus; M62.830 Muscle spasm of back; Z90.49 Acquired absence of other specified parts of digestive tract; Z90.710 Acquired absence of both cervix and uterus
CPT/HCPCS: 70450; 99284

== ENCOUNTER 2025-04-05 13:03 | Emergency (ER) | payer MEDICAID ==
[~2025-04-05] VITALS: Ht 160 cm; Wt 73.8 kg
[2025-04-05 13:20] VITALS: BP 157/114; PULSE 95; RESP 18; O2SAT 99
[2025-04-05 13:37] LABS: MEAN PLATELET VOLUME 8.2 FL (7.4-10.4); RED CELL DISTRIBUTION WIDTH 13.4 % (11.5-14.5)
[2025-04-05 13:38] LABS: LEUKOCYTE ESTERASE ,URINE MODERATE (Neg); NITRITES, URINE POSITIVE (Neg); OCCULT BLOOD,URINE NEGATIVE (Neg)
[2025-04-05 13:40] LABS: UA COLLECTION TYPE CLN CATCH MIDSTREAM
[2025-04-05 13:47] LABS: MUCUS STRANDS NONE SEEN /LPF (Neg); SQUAMOUS EPITHELIAL CELL,UR MODERATE /LPF (FEW)
[2025-04-05 13:48] LABS: WBC CLUMPS,URINE FEW /HPF (NEGATIVE)
[2025-04-05 13:56] LABS: CREATININE 0.79 MG/DL (0.40-0.90); TOTAL CARBON DIOXIDE 33.0 MMOL/L (24-32); eCRCL 57 ML/MIN; eGFR 73 ML/MIN
[2025-04-05] MEDS ORDERED: iohexol 300mg/ml 100ml inj. ONE (14:18)
[2025-04-05] MEDS: CefTRIAXone/D5W-Rocephin 1gm 50 ML IV ONE (14:42)
--- NOTE | 2025-04-05 15:36 | RADIOLOGY REPORT ---
EXAM: CT CT ABDOMEN PELVIS HISTORY: Flank pain COMPARISON STUDY: US ULTRASOUND OF ABDOMEN on DOS: 08/14/23, CT CT ABDOMEN PELVIS on DOS: 08/14/23 TECHNIQUE: A digital fuel island attendant image was obtained. During the uneventful, intravenous administration of contrast material, multislice data acquisition was obtained through the abdomen and pelvis. The data set was subsequently reconstructed into multiplanar reformats. RADIATION DOSE: CTDI vol 21.7 mGy. DLP 1155.0 mGy.cm FINDINGS: Lungs: Minimal basilar atelectasis/ scarring. Elevated right hemidiaphragm. Liver: Right hepatic cyst. Spleen: Unremarkable. Pancreas: Unremarkable. Gallbladder: Cholelithiasis. Adrenals: Unchanged indeterminate 2.1 cm right adrenal nodule. Kidneys: Too small to characterize renal lesions. No hydronephrosis. Pelvic Viscera: Prior hysterectomy. Vasculature: Atherosclerotic aortoiliac calcification. Retroperitoneum: Unremarkable. Bowel: Colonic diverticulosis without CT evidence of diverticulitis. Portions of the bowel are decompressed, limiting assessment. There is no bowel obstruction. No CT evidence of appendicitis. Postsurgical changes of the bowel. Musculoskeletal: Unremarkable. Soft tissues: Ventral abdominal wall hernias containing fat. IMPRESSION: 1. No acute abdominopelvic abnormality. 2. Incidental findings as detailed.
[2025-04-05] MEDS ORDERED: CEFP100T7 PO (15:49)
--- NOTE | 2025-04-05 15:49 | Physician Documentation ---
History of Present Illness ~ Chief Complaint: Flank Pain Stated Complaint: FLANK PAIN Time Seen by MD: 13:38 Primary Medical Doctor: FLORES CRUZ [facility] Mode of Arrival: POV, Ambulatory HPI 69-year-old female presents to the emergency department with complaint of left flank pain that she feels may be attributed to an existing adrenal tumor. Reports that she was seen several months ago and was told that she had a tumor on her kidney. She reports urinary symptoms with the associated malaise without fever or nausea or vomiting. Medication Reconciliation Allergies: Coded Allergies: Chlorpheniramine Polistirex (Verified Allergy, Severe, left arm numbness, 03/20/25) Scheduled Cefpodoxime Proxetil (Cefpodoxime Proxetil), 2 TAB PO Q12H Miscellaneous Medications Home Med List (No Home Medications), (Reported) Past Medical History Past Medical History: *GI/HEPATOBILIARY*, Bowel Obstruction Past Surgical History: abdominal surgery, appendectomy, hysterectomy, orthopedic surgeries Patient History: FH: breast cancer GRANDFATHER OR GRANDMOTHER FHx: multiple sclerosis MOTHER No Family History of: (CABG) Coronary artery bypass grafting (CAD) Coronary arteriosclerosis (CHF) Congestive heart failure (COPD) Chronic obstructive lung disease (CVA) Cerebrovascular accident (Cancer) Malignant carcinoid tumor (DM Type 2) Diabetes mellitus type 2 (DM Type1) Diabetes mellitus type 1 ([place]) Myocardial infarction (PVD) Peripheral vascular disease (TIA) Transient ischemic attack Alzheimer's disease Aortic aneurysm Asthma Cardiac arrest Hypercholesterolemia Alcohol Use: None Drug Use: none Lives with: Family Lives In: Home Occupation: unemployed Review of Systems All Other Systems at this time: Reviewed and Negative Constitutional: Reports: malaise; Denies: see HPI, fever Musculoskeletal: Reports: back pain Physical Exam Vital Signs: RN Vital Signs have been reviewed: Yes, Temperature: 98.3, Source: Temporal, Heart Rate: 95, Respiratory Rate: 18, BP: 157/114, Pulse Oximetry: 99, Weight: 73.800 Oxygen Flow Rate: 0 General Appearance: alert, WD/WN, mild distress EENT: PERRL/EOMI Neck: normal inspection Respiratory: lungs clear Chest: no accessory muscle use Cardiovascular: normal peripheral pulses Gastrointestinal: non-tender Back: CVA tenderness (L) Extremities: normal range of motion Neurologic: oriented x4 Psychiatric: normal mood/affect Skin: normal color Lymphatic: no adenopathy Progress Results/Orders Results/Orders Orders - ALEX TAVAREZ PAC Ct Abdomen Pelvis (04/05/25 14:45) Completed Orders - ALEX TAVAREZ PAC Ceftriaxone/[id number] 1gm (Rocephin 1 (04/05/25 14:00) Iohexol 300mg/Ml 100ml Inj. (Omnipaque-3 (04/05/25 14:18) Ct Abdomen Pelvis (04/05/25 14:45) Vital Signs 04/05/25 04/05/25 04/05/25 13:20 13:41 15:57 Temp 98.3 98.3 Pulse 95 Resp 18 B/P (MAP) 157/114 Pulse Ox 99 O2 Flow Rate 0 Laboratory Tests Test 04/05/25 13:25 04/05/25 13:31 Urine Specimen Description Cln catch midstream Urine Color Yellow Urine Clarity Slightly cloudy Urine pH 6.0 Urine Specific Chama 1.025 Urine Protein Negative Urine Glucose (UA) Negative Urine Ketones Trace H Urine Occult Blood Negative Urine Nitrite Positive H Urine Bilirubin Negative Urine Urobilinogen 2.0 H Urine Leukocyte Esterase Moderate H Urine RBC None seen Urine WBC 50-100 H Urine WBC Clumps Few Urine Squamous Epithelial Cells Moderate Urine Bacteria 4+ Urine Mucus None seen Urine Culture Indicated Indicated Volume Urine Centrifuged 10 ml Urine Comment White Blood Count 7.9 Red Blood Count 5.16 Hemoglobin 15.8 Hematocrit 46.4 H Mean Corpuscular Volume 90.1 Mean Corpuscular Hemoglobin 30.7 Mean Corpuscular Hemoglobin Concent 34.0 Red Cell Distribution Width 13.4 Platelet Count 245 Mean Platelet Volume 8.2 Neutrophils (%) (Auto) 46.8 Lymphocytes (%) (Auto) 38.4 Monocytes (%) (Auto) 10.8 Eosinophils (%) (Auto) 3.3 Basophils (%) (Auto) 0.7 Neutrophils # (Auto) 3.7 Lymphocytes # (Auto) 3.0 Monocytes # (Auto) 0.9 Eosinophils # (Auto) 0.3 Basophils # (Auto) 0.1 CBC Comment Sodium Level 144 Potassium Level 4.0 Chloride Level 109 H Carbon Dioxide Level 33.0 H Anion Gap 2 L Blood Urea Nitrogen 14 Creatinine 0.79 Estimated GFR/1.73 m2 73 BUN/Creatinine Ratio 17.7 Glucose Level 104 Calcium Level 8.9 Total Bilirubin 0.5 Aspartate Amino Transf (AST/SGOT) 124 H Alanine Aminotransferase (ALT/SGPT) 207 H Alkaline Phosphatase 146 H Total Protein 7.6 Albumin 3.6 Globulin 4.0 Albumin/Globulin Ratio 0.9 L Lipase 41 Chemistry Comments Microbiology Date/Time Source Procedure Growth Status 04/05/25 13:48 Urine Clean Catch Midstream Urine Culture - Preliminary Gram Negative Domingo Resulted Medical Decision Making Additional information obtaine: old records Findings 69-year-old female with left flank pain presents to the emergency department. Laboratory screening reassuring of the mild transient pneumonitis. No leukocytosis noted. Patient does have urine microscopy seek consistent with urinary tract infection. CT imaging reassuring for no renal or ureteral lithiasis. Diverticulosis noted on CT imaging without diverticulitis. Patient's concern regarding her adrenal nodule is on the right kidney not consistent with today's complaint of left flank pain. Her presentation today is that of complex UTI without isabel pyelonephritis yet we will go ahead and provide her with ceftriaxone IV piggyback along with hydration. Patient to be safely discharged with outpatient antibiotics instructions to follow up with the primary care physician for test of cure. She had strict instructions to return to the emergency department for nausea or vomiting fever increased pain or malaise. Urinary Diff Dx:Considerations: Include: Pyelonephritis, Renal failure, Urinary Obstruction, Urolithiasis, Urinary retention, UTI Genital Diff Dx:Considerations: Include: UTI Departure Disposition: HOME / SELF CARE / HOMELESS Impression: Primary Impression: Acute urinary tract infection Additional Impression: Flank pain Qualified Codes: R10.A2 - Flank pain, left side Condition: Improved Discharge Instructions: Pyelonephritis, Adult, Urinary Tract Infection, Adult, [id number] Additional Instructions: Today in the emergency department you were treated for an advanced urinary tract infection requiring IV antibiotics. Please begin outpatient antibiotics as directed make follow up appointment with the primary care physician. Your CT imaging is reassuring. Have a happy holiday season then please return to the emergency department if worse. Referrals: NO PRIMARY CARE PROVIDER (PCP) Prescriptions Cefpodoxime Proxetil (Cefpodoxime Proxetil) 100 Mg Tablet 2 TAB PO Q12H for 10 Days, #40 TAB 0 Refills Prov: ALEX TAVAREZ PAC 04/05/25 Education Educated: Patient Educated regarding: diagnosis, treatment, prognosis, need for follow up Signature Scribe Signature: . Attestation: . ALEX TAVAREZ [facility] Apr 05, 2025 15:49
[2025-04-05 15:57] VITALS: TEMP 98.3
== END 2025-04-05 15:59 | disposition home or self-care (01) ==
LOC: ER 13:03
DX: N39.0 Urinary tract infection, site not specified (principal); Z90.710 Acquired absence of both cervix and uterus; Z90.49 Acquired absence of other specified parts of digestive tract; Z79.899 Other long term (current) drug therapy; Z88.8 Allergy status to other drugs, medicaments and biological substances; Z56.0 Unemployment, unspecified
CPT/HCPCS: 36415; 74177; 80053; 81001; 83690; 85025; 87088; 87186; 96365; 99285; J0696; Q9967; 87077

== ENCOUNTER 2025-04-09 08:59 | Emergency (ER) | payer MEDICAID ==
[~2025-04-09] VITALS: Ht 160 cm; Wt 73.7 kg
[~2025-04-09 08:59] MED LIST changes: +CEFP100T7 PO
--- NOTE | 2025-04-09 09:15 | Physician Documentation ---
History of Present Illness General Chief Complaint: Hypertension Stated Complaint: HIGH BLOOD PRESSURE Time Seen by MD: 09:15 Primary Medical Doctor: FLORES CRUZ [facility] Medication Reconciliation Allergies: Coded Allergies: Chlorpheniramine Polistirex (Verified Allergy, Severe, left arm numbness, 04/10/25) Scheduled Cefpodoxime Proxetil (Cefpodoxime Proxetil), 2 TAB PO Q12H Cyclobenzaprine HCl (Cyclobenzaprine HCl), 1 TAB PO Q8H Cyclobenzaprine* (Cyclobenzaprine*), 20 MG PO TID Lisinopril (Lisinopril), 20 MG PO DAILY Lisinopril (Lisinopril), 1 TAB PO DAILY Discontinued Medications Home Med List (No Home Medications), (Reported) Discontinued Reason: patient no longer taking Lisinopril (Lisinopril), 1 TAB PO DAILY, (Reported) Past Medical History Past Medical History: *GI/HEPATOBILIARY*, Bowel Obstruction Past Surgical History: abdominal surgery, appendectomy, hysterectomy, orthopedic surgeries Smoking: Cigarettes Alcohol Use: None Drug Use: none Lives with: Family Lives In: Home Occupation: unemployed Physical Exam Physical Exam Vital Signs: Temperature: 97.6, Source: Oral, Heart Rate: 89, Respiratory Rate: 18, BP: 164/99, Pulse Oximetry: 97, Weight: 73.700 Oxygen Flow Rate: 0 Progress Results/Orders Results/Orders Orders - OHAVINASH HUDSON MD Chest,Single View (04/09/25 09:58) Saline Lock (04/09/25 09:58) Monitor (04/09/25 09:58) Completed Orders - AVINASH PISANO MD Cbc/Diff (04/09/25 09:58) MG (04/09/25 09:58) Electrocardiogram (04/09/25 09:58) PBNP (04/09/25 09:58) Chest,Single View (04/09/25 09:58) BMP (04/09/25 09:58) Hs Troponin I W Calculations (04/09/25 09:58) Vital Signs 04/09/25 04/09/25 04/09/25 04/09/25 09:04 09:15 09:15 10:27 Temp 97.6 97.6 Pulse 89 89 84 Resp 18 14 14 B/P (MAP) 164/99 188/107 (134) Pulse Ox 97 96 O2 Flow Rate 0 0 04/09/25 12:17 Temp 97.9 Pulse 69 Resp 16 B/P (MAP) 116/79 Pulse Ox 98 Laboratory Tests Test 04/09/25 10:25 White Blood Count 7.3 Red Blood Count 4.73 Hemoglobin 14.3 Hematocrit 43.0 Mean Corpuscular Volume 90.9 Mean Corpuscular Hemoglobin 30.3 Mean Corpuscular Hemoglobin Concent 33.4 Red Cell Distribution Width 13.6 Platelet Count 194 Mean Platelet Volume 8.5 Neutrophils (%) (Auto) 41.2 L Lymphocytes (%) (Auto) 42.6 Monocytes (%) (Auto) 11.0 Eosinophils (%) (Auto) 4.4 Basophils (%) (Auto) 0.8 Neutrophils # (Auto) 3.0 Lymphocytes # (Auto) 3.1 Monocytes # (Auto) 0.8 Eosinophils # (Auto) 0.3 Basophils # (Auto) 0.1 CBC Comment Sodium Level 145 Potassium Level 4.3 Chloride Level 112 H Carbon Dioxide Level 28.2 Anion Gap 5 L Blood Urea Nitrogen 11 Creatinine 0.70 Estimated GFR/1.73 m2 83 BUN/Creatinine Ratio 15.7 Glucose Level 99 Calcium Level 8.7 Magnesium Level 1.8 Troponin I High Sensitivity 7 Pro-B-Type Natriuretic Peptide 82 Albumin 3.3 L Chemistry Comments Departure Referrals: NO PRIMARY CARE PROVIDER (PCP) Prescriptions Cyclobenzaprine* (Cyclobenzaprine*) 10 Mg Tablet 20 MG PO TID for 30 Days, #90 TAB Prov: SURESH MILLER, RES 04/09/25 Lisinopril (Lisinopril) 20 Mg Tablet 20 MG PO DAILY for 30 Days, #30 TAB Prov: SURESH MILLER, RES 04/09/25 OHLFSAVINASH MD Apr 09, 2025 09:15
[2025-04-09] MEDS ORDERED: metoprolol tartrate 1mg/ml inj IV ONE (09:35)
--- NOTE | 2025-04-09 10:15 | ELECTROCARDIOGRAPH REPORT ---
[facility] Test Date: 2025-04-09 Test Time: 10:12:00 Pat Name: JAYLEN GROSS Department: EMERGENCY ROOM Room: Gender: F Copper Tapper: SHERLEY : 1955 Requested By: AVINASH PISANO Order Number: [id number] Reading MD: Measurements Intervals [place] Rate: 78 P: 62 AL: 157 QRS: 25 QRSD: 77 T: 59 QT: 378 QTc: 431 Interpretive Statements Sinus rhythm Abnormal R-wave progression, early transition Please click the below link to view image of tracing.
--- NOTE | 2025-04-09 10:24 | RADIOLOGY REPORT ---
EXAM: DI CHEST,SINGLE VIEW TECHNIQUE: Single frontal chest radiograph CLINICAL HISTORY: CP COMPARISON: CHEST,TWO VIEWS on DOS: 02/25/19 FINDINGS/IMPRESSION: Elevated right hemidiaphragm. The lungs are clear. Unremarkable cardiomediastinal silhouette. No pleural effusion or pneumothorax. No acute osseous abnormality.
--- NOTE | 2025-04-09 10:32 | Physician Documentation ---
History of Present Illness ~ Chief Complaint: Hypertension Stated Complaint: HIGH BLOOD PRESSURE Time Seen by MD: 09:16 Primary Medical Doctor: Lili Mode of Arrival: Ambulatory HPI 69-year-old female patient with past medical history of migraines, [facility] for prior methamphetamine use disorder. Stated that she started feeling dizzy, nauseous blurry of vision and while they checked her blood pre ssure over the it was elevated at 170 which prompted them to send her to the ED. On arrival patient's blood pressure was elevated by 167/99mmhg. Patient takes lisinopril 10 mg her blood pressure patient she took a dose this morning as well. Last visit to the ED was when she developed a urinary tract infection, patient was discharged home with cefpodoxime. Medication Reconciliation Allergies: Coded Allergies: Chlorpheniramine Polistirex (Verified Allergy, Severe, left arm numbness, 04/10/25) Scheduled Cefpodoxime Proxetil (Cefpodoxime Proxetil), 2 TAB PO Q12H Cyclobenzaprine HCl (Cyclobenzaprine HCl), 1 TAB PO Q8H Cyclobenzaprine* (Cyclobenzaprine*), 20 MG PO TID Lisinopril (Lisinopril), 20 MG PO DAILY Lisinopril (Lisinopril), 1 TAB PO DAILY Discontinued Medications Home Med List (No Home Medications), (Reported) Discontinued Reason: patient no longer taking Lisinopril (Lisinopril), 1 TAB PO DAILY, (Reported) Past Medical History Past Medical History: Hypertension (Patient has history of hypertension normally takes lisinopril 10 mg) Past Surgical History: abdominal surgery, appendectomy, hysterectomy, orthopedic surgeries Patient History: FH: breast cancer GRANDFATHER OR GRANDMOTHER FHx: multiple sclerosis MOTHER No Family History of: (CABG) Coronary artery bypass grafting (CAD) Coronary arteriosclerosis (CHF) Congestive heart failure (COPD) Chronic obstructive lung disease (CVA) Cerebrovascular accident (Cancer) Malignant carcinoid tumor (DM Type 2) Diabetes mellitus type 2 (DM Type1) Diabetes mellitus type 1 ([place]) Myocardial infarction (PVD) Peripheral vascular disease (TIA) Transient ischemic attack Alzheimer's disease Aortic aneurysm Asthma Cardiac arrest Hypercholesterolemia Alcohol Use: None Drug Use: none Lives with: Family Lives In: Home Occupation: unemployed Review of Systems ROS Constitutional: No fever, reports dizziness, no weakness, no decrease in appe tite HEENT: Normal vision. No sore throat, epistaxis, tinnitus Cardiovascular: No chest pain/discomfort, palpitations, syncope. no pedal edema Respiratory: No sob, cough,hemoptysis Gastrointestinal: No abdominal pain, nausea, vomiting. No diarrhea, melena. Genitourinary: No frquency, urgency, incontinence, nocturia. No dysuria, hematuria Musculoskeletal: Normal, no pains Endocrine: No fatigue, polydipsia, polyuria. No heat or cold intolerance Neurologic: Reports headache, no vertigo. No weakness, numbness or tingling of extremities Psychiatric: No hallucinations/delusions, no anhedonia, no suicidal ideation Hematologic: No bruises Physical Exam Vital Signs: Temperature: 97.6, Source: Oral, Heart Rate: 89, Respiratory Rate: 14, BP: 188/107, Pulse Oximetry: 96, Weight: 73.700 Oxygen Flow Rate: 0 Progress Progress Note We did a basic CBC, CMP and chest x-ray with the patient. All her lab results and imaging diagnostics are benign. Received a one time dose of metoprolol tartrate 25 mg p.o. patient's blood pressure normalized Results/Orders Results/Orders Orders - OHAVINASH HUDSON MD Chest,Single View (04/09/25 09:58) Saline Lock (04/09/25 09:58) Monitor (04/09/25 09:58) Completed Orders - AVINASH PISANO MD Cbc/Diff (04/09/25 09:58) MG (04/09/25 09:58) Electrocardiogram (04/09/25 09:58) PBNP (04/09/25 09:58) Chest,Single View (04/09/25 09:58) BMP (04/09/25 09:58) Hs Troponin I W Calculations (04/09/25 09:58) Vital Signs 04/09/25 04/09/25 04/09/25 04/09/25 09:04 09:15 09:15 10:27 Temp 97.6 97.6 Pulse 89 89 84 Resp 18 14 14 B/P (MAP) 164/99 188/107 (134) Pulse Ox 97 96 O2 Flow Rate 0 0 04/09/25 12:17 Temp 97.9 Pulse 69 Resp 16 B/P (MAP) 116/79 Pulse Ox 98 Laboratory Tests Test 04/09/25 10:25 White Blood Count 7.3 Red Blood Count 4.73 Hemoglobin 14.3 Hematocrit 43.0 Mean Corpuscular Volume 90.9 Mean Corpuscular Hemoglobin 30.3 Mean Corpuscular Hemoglobin Concent 33.4 Red Cell Distribution Width 13.6 Platelet Count 194 Mean Platelet Volume 8.5 Neutrophils (%) (Auto) 41.2 L Lymphocytes (%) (Auto) 42.6 Monocytes (%) (Auto) 11.0 Eosinophils (%) (Auto) 4.4 Basophils (%) (Auto) 0.8 Neutrophils # (Auto) 3.0 Lymphocytes # (Auto) 3.1 Monocytes # (Auto) 0.8 Eosinophils # (Auto) 0.3 Basophils # (Auto) 0.1 CBC Comment Sodium Level 145 Potassium Level 4.3 Chloride Level 112 H Carbon Dioxide Level 28.2 Anion Gap 5 L Blood Urea Nitrogen 11 Creatinine 0.70 Estimated GFR/1.73 m2 83 BUN/Creatinine Ratio 15.7 Glucose Level 99 Calcium Level 8.7 Magnesium Level 1.8 Troponin I High Sensitivity 7 Pro-B-Type Natriuretic Peptide 82 Albumin 3.3 L Chemistry Comments EKG/XRAY/CT/US/VASC/MRI EKG : Intepreting Monitor?: Yes Additional Comment His ECG showed sinus rhythm, regular rate Chest X-Ray : Interpreted By: radiologist Additional Comments Patient's chest x-ray reported Elevated right hemidiaphragm. The lungs are clear. Unremarkable cardiomediastinal silhouette. No pleural effusion or pneumothorax. No acute osseous abnormality. Medical Decision Making Additional information obtaine: family Findings Chest x-ray reported, Elevated right hemidiaphragm. The lungs are clear. Unremarkable cardiomediastinal silhouette. No pleural effusion or pneumothorax. No acute osseous abnormality. Troponins negative, proBNP within normal range Differential Dx:Considerations: Include CHF, Include HTN, essential, Include HTN, accelerated Departure Disposition: 01 HOME / SELF CARE / HOMELESS Impression: Primary Impression: HTN (hypertension) Additional Impression Text Given chief complaints of mild dizziness, blurry vision and nausea. Her blood pressure is elevated, gave the patient metoprolol p.o. 25 mg one time dose which normalized her blood pressure. Recommend patient monitoring blood pressure regularly; increased patient's home medication lisinopril 20 mg. Advised to get CMP after a week. In addition also increase patient's cyclobenzaprine to 20 mg. Patient was advised to return to ED in case of severe headache, stroke-like symptoms Referrals: NO PRIMARY CARE PROVIDER (PCP) Prescriptions Cyclobenzaprine* (Cyclobenzaprine*) 10 Mg Tablet 20 MG PO TID for 30 Days, #90 TAB Prov: SURESH MILLER, RES 04/09/25 Lisinopril (Lisinopril) 20 Mg Tablet 20 MG PO DAILY for 30 Days, #30 TAB Prov: SURESH MILLER, RES 04/09/25 Additional Comment Seen with PA/SUEDING MACHINE TENDER The patient was seen with the medical technologist blood bank. I have reviewed the medical medical residents note and agree with the note and the assessment and plan as written. The patient has been examined by myself. I have supervised all aspects of the residents care. The patient will be discharged Signature Scribe Signature: , Attestation: Patient was advised to return to ED in case of severe headache, stroke-like symptoms The prescriptions that were prescribed yesterday were actually never sent to the pharmacy I was asked to send them I attempted several times but was unable to get the prescriptions to send to the pharmacy I then tried to print the prescriptions off. I will also see if there is a nurse available who can call these prescriptions in, I was not involved in this patient's care other than trying to send these prescriptions in. The note accurately reflects work and decisions made by me.Shlomo RIBERA 04/10/25 10:59 SURESH MILLER, RES Apr 09, 2025 10:32 SHLOMO GOODE Apr 10, 2025 10:59 [facility] Apr 10, 2025 19:49
[2025-04-09 10:39] LABS: MEAN PLATELET VOLUME 8.5 FL (7.4-10.4); RED CELL DISTRIBUTION WIDTH 13.6 % (11.5-14.5)
[2025-04-09] MEDS ORDERED: CYCL-1 PO ×2 (10:48→11:49)
[2025-04-09] MEDS ORDERED: LISI10TA27 PO (10:48)
[2025-04-09 10:59] LABS: CREATININE 0.70 MG/DL (0.40-0.90); PRO BRAIN NATRIURETIC PEPTIDE 82 PG/ML (0-125); TOTAL CARBON DIOXIDE 28.2 MMOL/L (24-32); eCRCL 65 ML/MIN; eGFR 83 ML/MIN
[2025-04-09] MEDS ORDERED: LISI20TA28 PO (11:45)
[2025-04-09 12:17] VITALS: BP 116/79; PULSE 69; RESP 16; TEMP 97.9; O2SAT 98
[2025-04-10] MEDS ORDERED: CYCL-394 PO (13:37)
[2025-04-10] MEDS ORDERED: LISI20TA28 PO (13:37)
== END 2025-04-09 12:20 | disposition home or self-care (01) ==
LOC: ER 09:00
DX: I10 Essential (primary) hypertension (principal); F17.210 Nicotine dependence, cigarettes, uncomplicated; Z88.8 Allergy status to other drugs, medicaments and biological substances; Z90.49 Acquired absence of other specified parts of digestive tract; Z90.710 Acquired absence of both cervix and uterus; Z79.899 Other long term (current) drug therapy; Z98.890 Other specified postprocedural states; Z56.0 Unemployment, unspecified
CPT/HCPCS: 36415; 71045; 80048; 83735; 83880; 84484; 85025; 93005; 99285

== ENCOUNTER 2025-04-10 11:35 | Emergency (ER) | payer MEDICAID ==
[~2025-04-10] VITALS: Ht 160 cm; Wt 74.5 kg
[~2025-04-10 11:35] MED LIST changes: +CYCL-1 PO; +LISI10TA27 PO; +LISI20TA28 PO
--- NOTE | 2025-04-10 12:01 | Physician Documentation ---
History of Present Illness ~ General Chief Complaint: Hypertension Stated Complaint: HIGH BLOOD PRESSURE Time Seen by MD: 11:44 Primary Medical Doctor: Lili Source: patient Mode of Arrival: POV History of Present Illness Initial Comments Patient is a 69-year-old female with history of hypertension presenting to the ED for evaluation of high blood pressure with associated headaches. Patient states that she was here yesterday for the same symptoms and upon discharge she was not able to case picker her prescription at [facility] since it was sent to the wrong location. Patient came back to the ED because her symptoms persisted and she would like to get her medication sent to the right pharmacy this time. There are no other questions, concerns or complaints at this time. Medication Reconciliation Allergies: Coded Allergies: Chlorpheniramine Polistirex (Verified Allergy, Severe, left arm numbness, 04/10/25) Scheduled Cefpodoxime Proxetil (Cefpodoxime Proxetil), 2 TAB PO Q12H Cyclobenzaprine HCl (Cyclobenzaprine HCl), 1 TAB PO Q8H Cyclobenzaprine* (Cyclobenzaprine*), 20 MG PO TID Lisinopril (Lisinopril), 20 MG PO DAILY Lisinopril (Lisinopril), 1 TAB PO DAILY Discontinued Medications Home Med List (No Home Medications), (Reported) Discontinued Reason: patient no longer taking Lisinopril (Lisinopril), 1 TAB PO DAILY, (Reported) Past Medical History Past Medical History: Hypertension Past Surgical History: abdominal surgery, appendectomy, hysterectomy, orthopedic surgeries Patient History: FH: breast cancer GRANDFATHER OR GRANDMOTHER FHx: multiple sclerosis MOTHER No Family History of: (CABG) Coronary artery bypass grafting (CAD) Coronary arteriosclerosis (CHF) Congestive heart failure (COPD) Chronic obstructive lung disease (CVA) Cerebrovascular accident (Cancer) Malignant carcinoid tumor (DM Type 2) Diabetes mellitus type 2 (DM Type1) Diabetes mellitus type 1 ([place]) Myocardial infarction (PVD) Peripheral vascular disease (TIA) Transient ischemic attack Alzheimer's disease Aortic aneurysm Asthma Cardiac arrest Hypercholesterolemia Alcohol Use: None Drug Use: none Lives with: Family Lives In: Home Occupation: unemployed Review of Systems ROS ROS: Constitutional: Negative for fever and chills. HENT: Negative for sore throat and rhinorrhea. Eyes:Negative for pain and redness. Respiratory: Negative for cough and shortness of breath. Cardiovascular: Negative for chest pain and palpitations. Gastrointestinal: Negative for nausea and vomiting. Genitourinary: Negative for dysuria and hematuria. Musculoskeletal: Negative for acute back pain and acute neck pain. Skin: Negative for rash and pruritus. Neurological: + Headache. Negative for acute numbness or weakness. Physical Exam Physical Exam Vital Signs: Temperature: 97.3, Source: Temporal, Heart Rate: 88, Respiratory Rate: 20, BP: 188/112, Pulse Oximetry: 98, Weight: 74.500 Oxygen Flow Rate: 0 Physical Exam PHYSICAL EXAM: General Appearance: WDWN, No Distress, Cooperative, Awake Head: No Trauma. Scalp Normal Eyes: Lids normal, conjunctiva normal ENT: Mucous membranes normal, facial bones normal, lips normal, oropharynx normal Neck: Normal active FROM, non-tender with ROM, no meningeal signs, No JVD Back: Normal active FROM, non-tender with ROM, no CVAT Resp: Normal resp rate, normal flow, lungs clear to auscultation, no resp distress, no retractions Heart: Reg rhythm, no murmur Abd: Soft, non-tender, no guarding, no rebound, no mass Musc/Skel: No chest wall tenderness, Normal ROM UE's and LE's, No acute bone/joint abnormality or tenderness Skin: Normal color, no petechia/purpura, no rash Extremities: No edema Neuro: Motor 5/5 & Symmetric Bilat, CN 2-12 grossly intact and symmetric bilat. Oriented x4, speech normal. Psych: Mood & Affect: Normal, Depressed: 0, Awareness & insight normal Progress Results/Orders Results/Orders Completed Orders - ZEYNEP AUSTIN MD Lisinopril Tablet (Zestril Tablet) (04/10/25 12:05) Lisinopril Tablet (Zestril Tablet) (04/10/25 12:05) Medications Received in ER Medications (Trade) Dose Ordered Sig/Lacy Route PRN Reason Start Time Stop Time Status Last Admin Dose Admin (Zestril tablet) 20 mg ONCE ONCE PO 04/10/25 12:05 04/10/25 12:06 DC 04/10/25 12:19 20 MG Vital Signs 04/10/25 04/10/25 04/10/25 04/10/25 11:40 12:10 12:19 12:39 Temp 97.3 97.3 Pulse 88 77 74 Resp 20 18 14 B/P (MAP) 188/112 171/103 (125) Pulse Ox 98 96 O2 Flow Rate 0 0 04/10/25 04/10/25 12:45 13:48 Pulse 70 69 Resp 15 14 B/P (MAP) 155/93 (113) 143/87 Pulse Ox 98 99 O2 Flow Rate 0 Medical Decision Making Additional information obtaine: old records Findings Lisinopril 20 mg p.o. written yesterday to a pharmacy patient is not able to obtain prescription from Differential Diagnosis Patient is a 69-year-old female with history of hypertension presenting to the ED for evaluation of high blood pressure with associated headaches. MEDICAL DECISION MAKING: ER COURSE -I have reviewed the triage note. History obtained from the patient -All Labs, if applicable, independently reviewed by me I checked in EMR for old Records -Summary of additional information obtained from old records or from a source other than the patient: Patient is seen yesterday prescription for lisinopril written Repeat Evaluation: Re-evaluation of patient's blood pressure at 1326 was 136/8 8. Results and plan of care discussed with patient, patient understands and is agreeable to plan and disposition 69-year-old female with a history of hypertension presents because she had a medication prescription issue and was unable to obtain her antihypertensive medications that were prescribed to her yesterday she has been given a dose of lisinopril 20 mg p.o. here today and a correct pharmacy prescription has been written patient states her headache has subsided no evidence of emergent end- organ damage, blood pressure improved, patient is symptom free, follow up with PMD strict return precautions Patient counseled on prescriptions given Portions of this chart may have been created with [employer] voice recognition software. Occasional wrong-word or sound-alike substitutions may have occurred due to the inherent limitations of voice recognition software. Please read the chart carefully and recognize, using context, where these substitutions have occurred. Departure Time of Disposition: 13:39 Disposition: 01 HOME / SELF CARE / HOMELESS Impression: Primary Impression: hypertension Condition: Stable Discharge Instructions: Hypertension, Adult, [id number] Additional Instructions: Please case picker your medications and take them as prescribed. Follow up with your primary care provider regarding today's visit. Return to the ED for any new or worsening symptoms. Referrals: NO PRIMARY CARE PROVIDER (PCP) Prescriptions Cyclobenzaprine HCl (Cyclobenzaprine HCl) 10 Mg Tablet 1 TAB PO Q8H for muscle spasms for 10 Days, #30 TAB Prov: ZEYNEP AUSTIN MD 04/10/25 Lisinopril (Lisinopril) 20 Mg Tablet 1 TAB PO DAILY for 30 Days, #30 TAB Prov: ZEYNEP AUSTIN MD 04/10/25 Education Educated: Patient Educated regarding: diagnosis, treatment Signature Scribe Signature: Scribed for Zeynep Austin MD by Donn Stevenson . 04/10/25 12:02 Attestation: MEDICAL DECISION MAKING: ZEYNEP AUSTIN MD Apr 10, 2025 12:01 DONN CHONG Apr 10, 2025 12:06
[2025-04-10 12:10] VITALS: TEMP 97.3
[2025-04-10] MEDS ORDERED: LISI20TA28 PO (13:37)
[2025-04-10] MEDS ORDERED: CYCL-394 PO (13:37)
[2025-04-10 13:48] VITALS: BP 143/87; PULSE 69; RESP 14; O2SAT 99
== END 2025-04-10 13:50 | disposition home or self-care (01) ==
LOC: ER 11:35
DX: I10 Essential (primary) hypertension (principal); Z88.8 Allergy status to other drugs, medicaments and biological substances; Z90.49 Acquired absence of other specified parts of digestive tract; Z90.710 Acquired absence of both cervix and uterus; Z79.899 Other long term (current) drug therapy; Z98.890 Other specified postprocedural states
CPT/HCPCS: 99283